=== PATIENT | female | born 1960 | race Caucasian/White ===

== ENCOUNTER → 2016-09-06 | Outpatient (CLI) | payer MEDICAID ==
[2014-08-13 14:47] VITALS: BP 81/46
--- NOTE | 2016-09-06 18:50 | RAD ---
HISTORY: Pain Study: Left knee series Comparison: 08/01/2014 Findings: There is a metallic prosthesis in the femoral condyle and tibial plateau which were not seen previou sly. The femoral and and tibial portion of the prosthesis appear in good position and are held in pl stephen with methylmethacrylate. There are postop changes along the patella. The bones are severely oste openic. No fracture or dislocation is seen and there is no obvious joint effusion. IMPRESSION: Status post total left knee revision with no acute bony abnormality seen. Osteopenia with postop changes along the patella. Reported By:
--- NOTE | 2016-09-06 19:02 | RAD ---
HISTORY: Pain Study: Right knee series Comparison: None Findings: There is moderate to severe joint space narrowing in the knee which is more prominent medially. No f racture or dislocation is seen. There is moderate narrowing of the patellofemoral joint and there ar e some small calcifications seen along the suprapatellar bursa measuring up to 1 cm which appear wel l corticated. There is a small suprapatellar effusion. The bones are osteopenic. IMPRESSION: Moderately severe osteoarthritic changes in the knee which is more prominent medially and moderate p atellofemoral degenerative changes. Osteopenia with no acute abnormality seen. Small suprapatellar effusion and probable 1 cm loose body in the bursa superiorly. Reported By:
== END ==
LOC: RAD 16:05
PROVIDERS: ATTEND Nurse Practitioner Family
DX: M25.562 Pain in left knee (principal); M25.561 Pain in right knee
CPT/HCPCS: 73560

== ENCOUNTER → 2017-03-09 | Outpatient (CLI) | payer MEDICAID ==
[2014-08-13 14:47] VITALS: BP 81/46
--- NOTE | 2017-03-09 16:05 | NM ---
Indication: Status post surgery and left hip pain. Exam: Whole body bone scan Technique: The patient was then injected with 27 mCi of technetium 99 M MDP IV with anterior and post erior whole-body images obtained and spot images of pelvis. Findings: There is physiologic uptake throughout the osseous skeleton. There is normal uptake in the skull and upper extremities with symmetric uptake in the ribs and sternum . There is normal uptake in the kidneys and bladder . There is symmetric uptake in both SI joints with a moderate focus of round ed increased uptake along the greater trochanteric region of the right hip . There is some mild uptak e just inferior to this area in the proximal femur . There is heterogeneous uptake around both knees with a photopenic area on the left consistent with a prosthesis. There is a mild focus of increased u ptake along the midshaft of the tibia. Impression: Moderate focus of abnormal uptake along the greater trochanteric region of the left hip and a smaller focus of uptake just inferior to this area. This may just be related to recent surgery and hip aspir in history or possible recent trauma vs less likely an inflammation process or primary bone lesion in the area. Suggest plain film or MRI correlation. Small focus of uptake in the midshaft of the tibia which could be due to old healed trauma, recommend plain film correlation. Probable left knee prosthesis with heterogeneous moderate heterogeneous uptake in left knee which is probably degenerative in etiology. Reported By:
== END ==
LOC: RAD 09:04
PROVIDERS: ATTEND Orthopaedic Surgery
DX: M25.552 Pain in left hip (principal)
CPT/HCPCS: 78306; A9503

== ENCOUNTER → 2017-03-31 | Outpatient (CLI) | payer MEDICAID ==
[2014-08-13 14:47] VITALS: BP 81/46
--- NOTE | 2017-04-05 13:50 | MG ---
Examination: Bilateral diagnostic mammogram and right breast ultrasound. Clinical history: Yellowish right nipple discharge, with questionable area of palpable concern in the right breast. Technique: Multiple digital images of both breasts were obtained. Targeted right breast ultrasound wa s also obtained evaluating the retroareolar region of the right breast. Comparison: 01/16/2013, 12/15/2012. Findings: The breasts are composed almost entirely of adipose tissue. Benign-appearing calcifications are noted in the breasts bilaterally. There is a new cluster of benign-appearing rounded calcifications present in the upper medial aspect of the right breast in the posterior depth. A follow-up right diagnostic mammogram is recommended in 6 months to ensure stability of this finding. No suspicious mass or area of architectural distortion is noted. Targeted right breast ultrasound evaluating the retroareolar region of the right breast reveals no so nographic abnormality. No suspicious cystic or solid mass is noted. Impression: 1. Probably benign calcifications in the right breast, as described above. BI-RADS category 3/III (THREE) - PROBABLY BENIGN FINDING; SHORT INTERVAL FOLLOW-UP SUGGESTED. Recommend a follow-up right diagnostic mammogram in 6 months to ensure stability of the cluster of ca lcifications in the right breast. Diagnostic CAD was utilized and reviewed. * 0 (ZERO) - ASSESSMENT INCOMPLETE; ADDITIONAL IMAGING IS NEEDED. * 0C - ASSESSMENT INCOMPLETE, NEEDS ADDITIONAL IMAGING EVALUATION AND/OR PRIOR MAMMOGRAMS FOR COMPARI SON. * 1/1 (ONE) - NEGATIVE. * 2/II (TWO) - BENIGN FINDINGS. * 3/III (THREE) - PROBABLY BENIGN FINDING; SHORT INTERVAL FOLLOW-UP SUGGESTED. * 4/IV (FOUR) - SUSPICIOUS ABNORMALITY; BIOPSY SHOULD BE CONSIDERED. * 5/V - HIGHLY SUSPICIOUS OF MALIGNANCY; BIOPSY SHOULD BE PERFORMED. * 6/IV - KNOWN BIOPSY PROVEN MALIGNANCY-APPROPRIATE ACTION SHOULD BE TAKEN. A NEGATIVE X-RAY REPORT SHOULD NOT DELAY BIOPSY IF A DOMINANT OR CLINICALLY SUSPICIOUS MASS IS PRESENT; 4 TO 8 PERCENT OF CANCERS ARE NOT IDENTIFIED BY X-RAY. A NEGATIVE REPORT MAY REINFORCE THE CLINICAL IMPRESSION. ADENOSIS AND DENSE BREASTS MAY OBSCURE AN UNDERLYING NEOPLASM. Reported By:
== END ==
LOC: RAD 13:24
PROVIDERS: ATTEND Nurse Practitioner Family
DX: N64.52 Nipple discharge (principal); R92.8 Other abnormal and inconclusive findings on diagnostic imaging of breast
CPT/HCPCS: 77066

== ENCOUNTER → 2017-04-05 | Outpatient (CLI) | payer MEDICAID ==
[2014-08-13 14:47] VITALS: BP 81/46
--- NOTE | 2017-04-05 13:50 | US ---
Examination: Bilateral diagnostic mammogram and right breast ultrasound. Clinical history: Yellowish right nipple discharge, with questionable area of palpable concern in the right breast. Technique: Multiple digital images of both breasts were obtained. Targeted right breast ultrasound wa s also obtained evaluating the retroareolar region of the right breast. Comparison: 01/16/2013, 12/15/2012. Findings: The breasts are composed almost entirely of adipose tissue. Benign-appearing calcifications are noted in the breasts bilaterally. There is a new cluster of benign-appearing rounded calcifications present in the upper medial aspect of the right breast in the posterior depth. A follow-up right diagnostic mammogram is recommended in 6 months to ensure stability of this finding. No suspicious mass or area of architectural distortion is noted. Targeted right breast ultrasound evaluating the retroareolar region of the right breast reveals no so nographic abnormality. No suspicious cystic or solid mass is noted. Impression: 1. Probably benign calcifications in the right breast, as described above. BI-RADS category 3/III (THREE) - PROBABLY BENIGN FINDING; SHORT INTERVAL FOLLOW-UP SUGGESTED. Recommend a follow-up right diagnostic mammogram in 6 months to ensure stability of the cluster of ca lcifications in the right breast. Diagnostic CAD was utilized and reviewed. * 0 (ZERO) - ASSESSMENT INCOMPLETE; ADDITIONAL IMAGING IS NEEDED. * 0C - ASSESSMENT INCOMPLETE, NEEDS ADDITIONAL IMAGING EVALUATION AND/OR PRIOR MAMMOGRAMS FOR COMPARI SON. * 1/1 (ONE) - NEGATIVE. * 2/II (TWO) - BENIGN FINDINGS. * 3/III (THREE) - PROBABLY BENIGN FINDING; SHORT INTERVAL FOLLOW-UP SUGGESTED. * 4/IV (FOUR) - SUSPICIOUS ABNORMALITY; BIOPSY SHOULD BE CONSIDERED. * 5/V - HIGHLY SUSPICIOUS OF MALIGNANCY; BIOPSY SHOULD BE PERFORMED. * 6/IV - KNOWN BIOPSY PROVEN MALIGNANCY-APPROPRIATE ACTION SHOULD BE TAKEN. A NEGATIVE X-RAY REPORT SHOULD NOT DELAY BIOPSY IF A DOMINANT OR CLINICALLY SUSPICIOUS MASS IS PRESENT; 4 TO 8 PERCENT OF CANCERS ARE NOT IDENTIFIED BY X-RAY. A NEGATIVE REPORT MAY REINFORCE THE CLINICAL IMPRESSION. ADENOSIS AND DENSE BREASTS MAY OBSCURE AN UNDERLYING NEOPLASM. Reported By:
== END ==
LOC: RAD 11:51
PROVIDERS: ATTEND Nurse Practitioner Family
DX: N64.4 Mastodynia (principal); N64.52 Nipple discharge
CPT/HCPCS: 76642

== ENCOUNTER 2017-05-24 12:47 | Observation (INO) | payer MEDICAID ==
[2017-05-24] MEDS ORDERED: PHENERGAN INJ 25 MG IV PRN (18:17)
[2017-05-24] MEDS ORDERED: VALIUM PO ONE (18:23)
[2017-05-24] MEDS ORDERED: TIZANIDINE HCL 8 MG PO PRN (18:26)
[2017-05-24] MEDS ORDERED: NORCO 10/325 TAB PO PRN (18:26)
[2017-05-24] MEDS ORDERED: XANAX PO PRN (18:26)
[2017-05-24] MEDS ORDERED: ZANAFLEX PO PRN (18:45)
--- NOTE | 2017-05-24 18:48 | DR.H&P ---
H&P - History & Physical for Day of: H&P Date: 05/24/17 - Chief Complaint Chief Complaint: ABDOMINAL PAIN, N/V, WEAKNESS - Allergies Allergies/Adverse Reactions: Allergies Allergy/AdvReac Type Severity Reaction Status Date / Time aspirin Allergy Verified 05/24/17 18:21 doxycycline Allergy Verified 05/24/17 18:21 - History of Present Illness History of Present Illness: 56 WF DIRECT ADMIT FROM DR TUCKER OFFICE WITH CO RIGHT UPPER ABDMONIAL PAIN WITH FOOD INTOLERANCE AND DIARRHEA. PT HAD TAKEN PO CIPRO AND LOMOTIL WITHOUT IMPROVEMENT OF SYMPTOMS. PT HAS PMH OF DM, HTN, OA, GERD. PLAN TO RESUME HOME MEDS, OBTAIN ADMISSION LABS, STOOL STUDIES. ABD SERIES, GB US, IV ATBX AND PAIN AND NAUSEA CONTROL - Past Medical History Past Medical History: Anxiety, Arthritis, Hypertension, Hypothyroidism - Past Surgical History Surgical History: Joint Replacement - Family History Family Medical History: Diabetes Mellitus, Hypertension - Social History Does patient currently use any type of tobacco product: Yes Have you used tobacco products in the last 12 months: Yes Type of Tobacco Use: Cigarettes Does any household member use tobacco: No Alcohol Use: None Drug Use: None - Medications Home Medications: Butalb/Acetaminophen/Caffeine [Hualox-Lchyufel-Kyko 50-325-40] 1 tab PO Q6H PRN 05/24/17 [History Confirmed 05/24/17] Hydrocodone-Acet 10/325 mg [NORCO 10 MG/325 MG *] 1 tab PO BID PRN 05/24/17 [ History Confirmed 05/24/17] Meloxicam [Meloxicam] 1 tab PO DAILY 05/24/17 [History Confirmed 05/24/17] Quetiapine Fumarate [Quetiapine Fumarate] 1 tab PO HS 05/24/17 [History Confirmed 05/24/17] Ranitidine HCl 1 tab PO BID 05/24/17 [History Confirmed 05/24/17] - Review of Systems Constitutional: Fever, Weakness Eyes: No Symptoms Reported ENT: No Symptoms Reported Respiratory: Cough, Wheezing Cardiovascular: No Symptoms Reported, Edema Gastrointestinal: Nausea, Vomiting, Abdominal Pain, Diarrhea Genitourinary: No Symptoms Reported Musculoskeletal: Back Pain, Leg Pain Skin: No Symptoms Reported Neurological: No Symptoms Reported - Physical Exam Vital Signs: Blood Pressure [Right Arm] 81/46 Blood Pressure [Left Arm] 159/78 Blood Pressure 81/46 Oriented: Normal Eyes: Normal Ear: Normal Nose: Normal Throat: Normal Respiratory: Rhonchi Throughout, RLL Diminished, LLL Diminished Cardiovascular: Normal : Normal Auscultation: Bowel Sounds: Normal Palpation: Normal Tenderness: RUQ, Epigastric Skin: Normal Musculoskeletal: Knee, Back:Lumbar, Motor Deficit Affect: Anxious Speech Pattern: Clear, Appropriate - Assessment/Plan (1) Abdominal pain Status: Acute Plan: ADMIT, CBC CMP AMYLASE LIPASE. STOOL STUDIES, ABD XRAY, UA. GB US, PAIN AND NAUSEA CONTROL. RESUME HOME MEDS (2) Nausea vomiting and diarrhea Status: Acute (3) Intractable pain Status: Acute (4) Anxiety Status: Chronic (5) GERD (gastroesophageal reflux disease) Status: Chronic (6) Hypertension Status: Chronic
[2017-05-24 18:56] LABS: BASOPHILS # (AUTO) 0.1 X10^3/uL (0.0-0.1); BASOPHILS % (AUTO) 0.7 % (0.2-1.0); EOSINOPHILS # (AUTO) 0.1 x10^3/uL (0.0-0.2); EOSINOPHILS % (AUTO) 1.4 % (0.9-2.9); HEMATOCRIT 44.3 % (36.0-47.0); HEMOGLOBIN 15.5 g/dL (12.0-16.0); LYMPHOCYTES # (AUTO) 2.5 X10^3/uL (1.3-2.9); MEAN CORPUSCULAR HEMOGLOBIN 32.2 pg (27.0-34.0); MEAN CORPUSCULAR VOLUME 91.9 fL (80.0-100.0); MEAN PLATELET VOLUME 8.6 fL (7.4-11.0); MONOCYTES # (AUTO) 0.7 x10^3/uL (0.3-0.8); NEUTROPHILS # (AUTO) 4.9 x10^3/uL (2.2-4.8); NEUTROPHILS % (AUTO) 59.9 % (42.0-75.0); PLATELET COUNT 217 X10^3/uL (150.0-450.0); RED BLOOD COUNT 4.82 X10^6/uL (3.5-5.4); RED CELL DISTRIBUTION WIDTH 13.9 % (11.6-16.5); WHITE BLOOD COUNT 8.2 X10^3/uL (3.6-10.0)
[2017-05-24 19:09] LABS: ALANINE AMINOTRANSFERASE 42 Units/L (12-78); ALKALINE PHOSPHATASE 120 Units/L (46-116); AMYLASE 37 Units/L (25-115); ASPARTATE AMINO TRANSFERASE 26 Units/L (15-37); BLOOD UREA NITROGEN 7 mg/dL (7-18); CALCIUM 9.4 mg/dL (8.5-10.1); CHLORIDE 103 mmol/L (98-107); CREATININE 0.71 mg/dL (0.55-1.02); LIPASE 190 Units/L (73-393); SODIUM 142 mmol/L (136-145); TOTAL PROTEIN 7.8 g/dL (6.4-8.2); eGFR BLACK RACES > 60 (>60); eGFR NON BLACK RACES > 60 (>60)
[2017-05-24] MEDS: LYRICA CAP 150 MG PO SCH (20:25)
[2017-05-24] MEDS: PEPCID 20 MG IV PREMIX* 20 MG/50 ML BAG IV SCH ×2 (20:25→20:27)
[2017-05-24] MEDS: CIPRO IV 400 MG PREMIX* 400 MG/200 ML IV.SOLN. IV SCH ×2 (20:25→20:26)
[2017-05-24 20:34] VITALS: BMI 48.4
--- NOTE | 2017-05-24 20:36 | RAD ---
ACUTE ABDOMINAL SERIES CLINICAL HISTORY: 56-year-old female with right upper quadrant pain, nausea and vomiting with food in tolerance. COMPARISON: None. FINDINGS: PA chest radiograph demonstrates normal cardiopericardial silhouette. There is no focal consolidation , pleural effusion or pneumothorax. Pulmonary vascularity is normal. Abdominal radiographs demonstrate a nonobstructive bowel gas pattern. Gas and stool are seen througho ut the colon. There is no small bowel distention. There is no radiographic evidence of pneumoperitone um. Prior ORIF left hip. Imaged osseous structures are intact. Soft tissues are unremarkable. IMPRESSION: 1. No acute cardiopulmonary process. 2. Nonobstructive bowel gas pattern without radiographic evidence of pneumoperitoneum. Reported By:
[2017-05-24] MEDS ORDERED: K-LYTE EFFERVESCENT PO PRN (20:49)
[2017-05-24] MEDS ORDERED: K-RIDER 10 MEQ/NS 100 ML 10 MEQ/100 ML BAG IV PRN (20:49)
[2017-05-24] MEDS ORDERED: POTASSIUM CHLORIDE LIQ 20 MEQ UDC PO PRN (20:49)
[2017-05-24] MEDS ORDERED: POTASSIUM CHL 60 MEQ/NS 0.45% 500 ML IV PRN (20:49)
[2017-05-24] MEDS ORDERED: PATIENT'S HOME MEDICATION (Simvastatin [Simvastatin] 20 MG) PO SCH (21:00)
[2017-05-24] MEDS ORDERED: SEROquel TAB 100 MG PO SCH (21:00)
[2017-05-24] MEDS ORDERED: ZANTAC PO SCH (21:00)
[2017-05-24] MEDS ORDERED: ZOCOR TAB 20 MG PO SCH (21:00)
[2017-05-24 21:07] LABS: BILIRUBIN,URINE NEGATIVE (NEGATIVE); BLOOD/HEMOGLOBIN,URINE 1+ (NEGATIVE); GLUCOSE, URINE NEGATIVE (NEGATIVE); KETONES,URINE NEGATIVE (NEGATIVE); LEUKOCYTE ESTERASE ,URINE NEGATIVE (NEGATIVE); NITRITES,URINE NEGATIVE (NEGATIVE); PROTEIN,URINE NEGATIVE (NEGATIVE); UROBILINOGEN,URINE NORMAL (NORMAL)
[2017-05-24 21:14] LABS: APPEARANCE,URINE CLEAR (CLEAR); BACTERIA,URINE TRACE /HPF (NEGATIVE); COLOR,URINE YELLOW (YELLOW); RBC,URINE 0-1 /HPF (NEGATIVE); SQUAMOUS EPITHELIAL CELL,UR FEW /HPF (NEGATIVE)
[2017-05-24] MEDS: POTASSIUM CHL 40 MEQ/NS 0.45% 500 ML IV PRN (21:18)
[2017-05-24] MEDS: NICOTINE PATCH TD SCH (21:18)
--- NOTE | 2017-05-24 22:07 | US ---
Right Upper Quadrant Sonogram Indication: Right upper quadrant pain Comparison: None available Technique: Multiple abbott scale and color flow Doppler images of the right upper quadrant were obtaine d. Findings: The liver is diffusely increased in echogenicity consistent with steatosis. No focal hepatic lesion. No focal intrahepatic biliary ductal dilatation can be observed. The gallbladder is normal in caliber and contains multiple stones. There is borderline thickening of the gallbladder wall measuring 3-4 mm. No pericholecystic fluid or submucosal edema identified. Commo n bile duct measures 4 mm. The right kidney appears normal in size without focal parenchymal mass or nephrolithiasis. The right kidney measurers 12.0 cm. No hydronephrosis or perirenal fluid can be observed. The pancreatic head and body are unremarkable. IVC is patent. IMPRESSION: 1. Cholelithiasis without sonographic evidence of acute cholecystitis. 2. Hepatic steatosis without focal hepatic lesion. Reported By:
[2017-05-24] MEDS: CHECK PATCH XX SCH (22:34)
[2017-05-25] MEDS: POTASSIUM CHL 40 MEQ/NS 0.45% 500 ML IV PRN (05:32)
[2017-05-25] MEDS: NICOTINE PATCH TD SCH (08:28)
[2017-05-25] MEDS: CIPRO IV 400 MG PREMIX* 400 MG/200 ML IV.SOLN. IV SCH (08:29)
[2017-05-25] MEDS ORDERED: NS 500 ML IV 500 ML IV ONE (08:30)
[2017-05-25] MEDS ORDERED: FLONASE NASAL SPRAY ENOSTRIL SCH (09:00)
[2017-05-25] MEDS ORDERED: HYZAAR 50/12.5 MG PO SCH (09:00)
[2017-05-25] MEDS: CHECK PATCH XX SCH (09:00)
[2017-05-25] MEDS ORDERED: COZAAR PO SCH (09:00)
[2017-05-25] MEDS ORDERED: TOPROL XL PO SCH (09:00)
[2017-05-25] MEDS ORDERED: NS 500 ML IV 500 ML IV SCH (09:00)
[2017-05-25] MEDS ORDERED: SYNTHROID 175 mcg TAB PO SCH ×2 (09:00→16:30)
[2017-05-25] MEDS ORDERED: DEMEROL INJ IVP PRN (09:21)
[2017-05-25] MEDS ORDERED: ROCEPHIN VIAL 1 GM 1 GM in NS 100 ML IV + SPIKE MINIBAG* 100 ML IV SCH (09:30)
[2017-05-25] MEDS ORDERED: VALIUM ONE (10:07)
[2017-05-25] MEDS: VALIUM PO ONE ×2 (11:44→12:15)
--- NOTE | 2017-05-25 13:31 | NM ---
HISTORY: Right upper quadrant abdominal pain. Nausea and vomiting. Food intolerance. Study: Nuclear medicine HIDA scan. Comparison: Gallbladder ultrasound dated 05/24/2017. Technique: Multiple scintigraphic images of the abdomen were obtained after the intravenous administr ation of 5.5 mCi of technetium labeled Choletec. Gallbladder ejection fraction was not performed. Findings: Homogeneous uptake of radiotracer is seen throughout the liver. The intrahepatic biliary d uctal system is observed normally. The common hepatic and common bile duct are grossly unremarkable with normal biliary-bowel transit. The gallbladder is observed to fill normally. IMPRESSION: Normal hepatobiliary imaging scan without acute cholecystitis. Gallbladder ejection fraction was not performed secondary to cholelithiasis. Reported By:
--- NOTE | 2017-05-25 14:24 | MRI ---
MRI lumbar spine without contrast Indication: Intractable low back pain, left hip pain Comparison: None Technique: Multiplanar, multi sequence MR images of the lumbar spine were obtained without contrast. Findings: Multiple gallstones are present, with the largest measuring 1.2 cm. The paravertebral soft tissues otherwise grossly unremarkable. The lumbar spine alignment is normal. There is no evidence for acute lumbar spine fracture or suspici ous marrow lesion. Hemangiomas within the T12 and L1 vertebral bodies are noted. There is congenital pedicular shortening throughout the lumbar spine, contributing to overall spinal canal narrowing. Mul tilevel degenerative changes are discussed on a level by level basis below. The conus terminates at L 1-2. The cauda equina is grossly unremarkable, aside from areas of nerve root clumping from spinal ca nal narrowing. T12-L1, L1-2: Unremarkable. L2-3: Congenital pedicular shortening and minimal facet arthropathy, without significant spinal canal narrowing. L3-4: There is mild circumferential disc bulge and moderate bilateral facet arthropathy with pedicula r shortening resulting in [id number] bilateral neural foraminal narrowing and moderate spinal c anal narrowing. L4-5: There is circumferential disc bulge and marked bilateral facet arthropathy with ligamentum flav um thickening and pedicular shortening resulting in moderate bilateral neural foraminal narrowing and moderate to severe spinal canal narrowing. L5-S1: There is mild circumferential disc bulge with marked bilateral facet arthropathy and congenita l pedicular shortening resulting in [id number] bilateral neural foraminal narrowing and mild sp inal canal narrowing. Impression: Lumbar spondylosis and congenital pedicular shortening resulting in multifocal spinal canal and neura l foraminal narrowing as above. The spinal canal narrowing is most severe at L4-5. Cholelithiasis. Reported By:
[2017-05-25] MEDS ORDERED: FIORICET TAB PO PRN (16:18)
[2017-05-25 16:25] VITALS: BP 170/83
[2017-05-25] MEDS: PEPCID 20 MG IV PREMIX* 20 MG/50 ML BAG IV SCH (17:42)
[2017-05-25] MEDS: LYRICA CAP 150 MG PO SCH (17:43)
== END 2017-05-25 18:15 | disposition home or self-care (01) ==
LOC: MED/SURG 12:47
PROVIDERS: ADMIT Internal Medicine; ATTEND Internal Medicine
DX: R10.11 Right upper quadrant pain (principal); K80.20 Calculus of gallbladder without cholecystitis without obstruction; R52 Pain, unspecified; F41.8 Other specified anxiety disorders; K21.9 Gastro-esophageal reflux disease without esophagitis; I10 Essential (primary) hypertension; R14.3 Flatulence; K76.0 Fatty (change of) liver, not elsewhere classified; M47.896 Other spondylosis, lumbar region; R11.2 Nausea with vomiting, unspecified
CPT/HCPCS: 36415; 72148; 74022; 76705; 78226; 80053; 81001; 82150; 83690; 83735; 84132; 85025; A4222; A9537; S0028; G0378; J0744; J2550

== ENCOUNTER 2017-08-22 12:40 | Emergency (ER) | payer MEDICAID ==
[2017-08-22 12:45] VITALS: BMI 43.2
[2017-08-22] MEDS ORDERED: TORADOL 60 MG VIAL IM ONE (13:35)
--- NOTE | 2017-08-22 13:38 | DR.EXTPAIN ---
HPI - Time seen Time seen: 13:15 - PCP Primary Care Physician: LAYLA - HPI Comment HPI Comment: HISTORY BELOW. - Complaint/Symptoms Chief Complaint Doctor Comments: FELL ON HER SCOTER AND HIT FLOOR. PAIN RT RIB, RT WRIST, RT AND LT KNEES. INCREASING PAIN. Chief Complaint:: PT C/O TRIPPING OVER HER WALKER AND HITTING THE FLOOR AND SHE FELL ON CARPET AND SHE HIS HER RIGHT KNEE, AND PT HAS EDEMA TO HER RIGHT MID FINGER. Self Treatment fo Chief Complaint: HER REG MEDS, ICE , AND PROPPED ,,,,NO DEFORMITY OF EDEMA NOTED . - Nurses notes reviewed Nurses Notes Review: Yes - Source History Provided: Patient - Mode of arrival Mode of Arrival: Ambulatory - Timing Onset of Chief Complaint: 08/21/17 - Context History of: Arthritis - Associated signs and symptoms Associated Signs and Symptoms: Pain, Swelling, Bruising PMH - PMH Past Medical History: Yes Past Medical History: Anxiety, Arthritis, Hypertension, Hypothyroidism Past Surgical History: Yes Surgical History: Joint Replacement - Family History History of Family Medical Conditions: Yes Family Medical History: Diabetes Mellitus, Hypertension - Social History Does patient currently use any type of tobacco product: Yes Type of Tobacco Use: Cigarettes How many years tobacco product used: 30 Does any household member use tobacco: No Alcohol Use: None Do you use any recreational Drugs:: No Lives With: Family Lives Where: Home - infectious screening In the last 2 months have you had wt loss of >10#?: NO Have you had fever, night sweats or hemotysis?: No Have you traveled outside the country in the last 6 months?: No Isolation: Standard ROS - Review of Systems Constitutional: No Symptoms Reported Eyes: No Symptoms Reported ENTM: No Symptoms Reported Respiratoy: No Symptoms Reported. negative: Productive Cough, Non-Productive Cough, Short of Breath, Wheezing, Hemoptysis Cardiovascular: Chest Pain (CHEST WALL PAIN.) Gastrointestinal/Abdominal: Abdominal Pain. negative: Diarrhea, Nausea, Vomiting Genitourinary: negative: Dysuria, Frequency, Hematuria Neurological: No Symptoms Reported Musculoskeletal: Joint Pain, Joint Swelling, Muscle Pain, Wrist, Hand, Knee Integumentary: Change in Color, Bruises Hematologic/Lymphatic: Easy Bleeding, Easy Bruising Endocrine: No Symptoms Reported All Other Systems: Reviewed and Negative PE - Vital Signs Vitals: Temperature 96.0 F Pulse Rate 90 Respiratory Rate 18 Blood Pressure [Right Arm] 81/46 Blood Pressure [Left Arm] 103/54 Blood Pressure 90/50 O2 Sat by Pulse Oximetry 94 - General Limitations: No Limitations General Appearance: Alert - Head Head Exam: Normal Inspection - Eyes Eye exam: Normal Appearance - ENT ENT Exam: Normal External Ear Exam - Neck Neck Exam: Trachea Midline - Chest Chest Inspection: Symmetric Chest Wall Rise - Respiratory Respiratory Exam: Chest Wall Tenderness (RT LOWER RIB.) Respiratory Exam: Bilateral Rhonchi, Lower Rhonchi - Cardiovascular Cardiovascular Exam: Regular Rate, Normal Rhythm, Normal Heart Sounds - Abdominal Exam Abdominal Exam: Normal Inspection - Extremities Extremities Exam: Tenderness (RIGHT HAND SWOLLEN AND TENDER. ROM INTACT.) - Lower Extremities Upper Leg Exam: Full ROM (WITH PAIN), Tenderness, Swelling Neurovascular/Tendon Exam: Normal Capillary Refill Gait Exam: Observed & Limited by Pain MDM - Differential Diagnosis Differential Diagnosis: Contusion, Fracture, Sprain Course - Treatment Treatment: SEE ORDERS. - Education/Counseling Education/Counseling: Patient, Education Educated On: Diagnosis, Needs for Follow Up ROR - XRAY XRAY Interpreted by: Radiologist XRAY Findings: REPORT DISCUSS WITH PATIENT. - Diagnosis Discharge Problem: Knee sprain, bilateral Fracture of right hand Qualifiers: Encounter type: initial encounter Fracture type: closed Qualified Code(s): S62.91XA - Unspecified fracture of right wrist and hand, initial encounter for closed fracture Fracture of finger Qualifiers: Encounter type: initial encounter Finger: middle finger Fracture type: closed Phalanx: middle Fracture alignment: nondisplaced Laterality: right Qualified Code(s): S62.652A - Nondisplaced fracture of middle phalanx of right middle finger, initial encounter for closed fracture Rib contusion Qualifiers: Encounter type: initial encounter Laterality: right Qualified Code(s): S20.211A - Contusion of right front wall of thorax, initial encounter - Discharge Plan Disposition: 01 HOME, SELF-CARE Condition: Stable - Follow ups/Referrals Follow ups/Referrals: LAYLA URIBE [Primary Care Provider] - 3 days - Instructions Instructions: Finger Fracture, Knee Sprain, Adult Additional Instructions: RETURN TO ED IF WORSE.
[2017-08-22] MEDS ORDERED: TORADOL 60 MG VIAL ONE (13:43)
--- NOTE | 2017-08-22 14:57 | RAD ---
Exam: Right knee AP and lateral views History: 57-year-old female with right knee injury Comparison: Previous right knee radiographs from 09/06/2016 Findings: Generalized degenerative changes are present with narrowing of the medial femoral compartment. Margin al osteophytes are noted bilaterally as well as along the posterior aspect of the patella. Incidental note is made of a right knee joint effusion. No definite site of acute bony abnormality is identifie d however. Impression: 1. Generalized degenerative changes are present in the right knee, as described above. 2. Small right knee joint effusion Reported By:
--- NOTE | 2017-08-22 14:59 | RAD ---
Exam: Left knee, AP and lateral views History: Left knee pain as result of a fall. Comparison: Previous left knee radiographs from 09/06/2016. Findings: Patient is status post left total knee replacement. Both femoral and tibial components of the prosthe sis appear well seated with no radiographic evidence of loosening. Heterotopic bone formation is iden tified in the posterior aspect of the knee joint. However no acute bony abnormality or significant pawel int effusion is seen on this exam. Impression: Status post left total knee replacement. No acute abnormality is seen on this exam however. Reported By:
--- NOTE | 2017-08-22 15:05 | RAD ---
Indication: Fall and pain Exam: Bilateral rib detail films. Technique: AP and oblique views. Findings: No fracture is seen. There are chronic interstitial changes throughout with mild linear sca rring along the lung bases which is unchanged. No consolidation, effusion, or pneumothorax is seen. Impression: Stable chronic changes with no rib fracture identified Reported By:
--- NOTE | 2017-08-22 15:10 | RAD ---
HISTORY: Status post fall. Right hand pain. Study: Right hand: Three views Comparison: None Findings: Carpal, metacarpal and phalangeal alignment is normal. Minimal degenerative changes present in the w rist joint proper with [id number] the 1st carpal metacarpal joint. Moderate is noted in the 1s t metacarpophalangeal joint. Minimal is noted in several of the metacarpophalangeal joints and inter phalangeal joints. There appears to be a small bony density adjacent to the dorsum of the base of the middle phalanx of the 3rd finger felt to be a minimally distracted avulsion fracture. In addition there may be a nondi splaced avulsion fracture from the dorsum of the base of the proximal phalanx of the 3rd digit. Clin ical correlation is recommended. Soft tissue swelling is noted along the 3rd finger. Subchondral cy st formation is noted in the lunate. No appreciable erosive changes noted. IMPRESSION: 1. Degenerative change in the right hand described above felt to be on the basis of osteoarthritis. 2. Minimally distracted avulsion type fracture from the dorsum of the base of the middle phalanx of the 3rd finger. 3. There is a questionable nondisplaced avulsion fracture from the base of proximal phalanx of the 3r d finger is well. Clinical correlation is recommended. 4. No other acute bony abnormalities are identified. Reported By:
--- NOTE | 2017-08-22 15:21 | RAD ---
Exam: Right wrist three views History: Right wrist pain as result of a fall Comparison: None. Findings: Degenerative changes are present the 1st carpal metacarpal joint and the 1st metacarpophalangeal join t.. Cystic degenerative changes noted in the proximal carpal bones. On the oblique view, a linear félix ency extends transversely across the distal metaphyseal aspect of the right radius. No corresponding finding is seen on the other two views however, nor is there evidence of actual cortical interruption . Nonetheless possibility of a subtle bony injury should be considered. Impression: 1. Linear lucency extending across the distal aspect of the right radius, on the oblique view, may re flect subtle bony injury. However no corresponding abnormality is seen on the other two views. 2. Mild degenerative changes as described above. Reported By:
[2017-08-22 16:22] VITALS: BP 103/54
== END 2017-08-22 16:21 | disposition home or self-care (01) ==
LOC: ER 12:55
DX: S62.652A Nondisplaced fracture of middle phalanx of right middle finger, initial encounter for closed fracture (principal); S20.211A Contusion of right front wall of thorax, initial encounter; S83.91XA Sprain of unspecified site of right knee, initial encounter; S83.92XA Sprain of unspecified site of left knee, initial encounter; W01.198A Fall on same level from slipping, tripping and stumbling with subsequent striking against other object, initial encounter; Y92.9 Unspecified place or not applicable
CPT/HCPCS: 71111; 73100; 73130; 73560; 96372; 99282; 99283; J1885

== ENCOUNTER → 2017-08-31 | Outpatient (CLI) | payer MEDICAID ==
[2017-08-22 16:22] VITALS: BP 103/54
[2017-08-31 09:42] LABS: HEMOGLOBIN A1C 5.6 %
[2017-08-31 09:49] LABS: BASOPHILS # (AUTO) 0.1 X10^3/uL (0.0-0.1); EOSINOPHILS # (AUTO) 0.2 x10^3/uL (0.0-0.2); EOSINOPHILS % (AUTO) 2.8 % (0.9-2.9); HEMATOCRIT 40.9 % (36.0-47.0); HEMOGLOBIN 14.3 g/dL (12.0-16.0); LYMPHOCYTES # (AUTO) 1.5 X10^3/uL (1.3-2.9); MEAN CORPUSCULAR HEMOGLOBIN 32.6 pg (27.0-34.0); MEAN CORPUSCULAR VOLUME 93.2 fL (80.0-100.0); MEAN PLATELET VOLUME 8.9 fL (7.4-11.0); MONOCYTES # (AUTO) 0.7 x10^3/uL (0.3-0.8); MONOCYTES % (AUTO) 10.2 % (0.0-13.0); NEUTROPHILS # (AUTO) 4.3 x10^3/uL (2.2-4.8); PLATELET COUNT 196 X10^3/uL (150.0-450.0); RED BLOOD COUNT 4.39 X10^6/uL (3.5-5.4); RED CELL DISTRIBUTION WIDTH 13.5 % (11.6-16.5); RETICULOCYTE % 2.23 % (0.8-2.2); WHITE BLOOD COUNT 6.8 X10^3/uL (3.6-10.0)
[2017-08-31 09:51] LABS: C-REACTIVE PROTEIN 23.1 mg/L (0-3.0); FREE T4 (FREE THYROXINE) 1.24 ng/dL (0.76-1.46); TSH (3RD GENERATION) 1.409 uIU/mL (0.358-3.74)
[2017-08-31 10:16] LABS: ERYTHROCYTE SEDIMENTATION RATE 15 MM/HOUR (0-20)
[2017-09-02 12:00] LABS: ALBUMIN (SPEP) 4.07 g/dL (3.75-5.01); ALPHA-1 (SPEP) 0.36 g/dL (0.19-0.46); ALPHA-2 (SPEP) 0.76 g/dL (0.48-1.05); GAMMA (SPEP) 0.92 g/dL (0.62-1.51)
[2017-09-02 14:02] LABS: ANTI-NUCLEAR ANTIBODY TEST None Detected (None Detected)
== END ==
LOC: LAB 08:54
PROVIDERS: ATTEND Psychiatry & Neurology Neurology
DX: G60.9 Hereditary and idiopathic neuropathy, unspecified (principal); R79.82 Elevated C-reactive protein (CRP); R79.89 Other specified abnormal findings of blood chemistry
CPT/HCPCS: 36415; 82607; 82728; 83036; 83540; 83550; 84165; 84439; 84443; 85025; 85045; 85652; 86140; 86308